=== PATIENT | male | born 1935 | race Caucasian/White ===

== ENCOUNTER 2016-10-22 15:24 | Inpatient (IN) | payer OTHER ==
[~2016-10-22] VITALS: Ht 172.7 cm; Wt 70.8 kg
[2016-10-22 15:25] VITALS: BP_SYST 159
[2016-10-22] MEDS ORDERED: ACETAMINOPHEN 500 MG TABLET PO ONE (18:15)
[2016-10-22] MEDS ORDERED: PROPARACAINE (OPTHANINE 0.5%) 15 ML DROPS OP ONE (18:15)
[2016-10-22] MEDS ORDERED: OMEG300C3 PO (19:37)
[2016-10-22] MEDS ORDERED: ALLO100T PO (19:37)
[2016-10-22] MEDS ORDERED: ASPI-1063 PO (19:38)
[2016-10-22] MEDS ORDERED: CLOP75TA2 PO (19:39)
[2016-10-22] MEDS ORDERED: LEVO75TA7 PO (19:43)
[2016-10-22] MEDS ORDERED: CYCL25CA PO (19:44)
[2016-10-22] MEDS ORDERED: HYDR-1115 PO (19:44)
[2016-10-22 19:46] LABS: BASOPHILS % (AUTO) 0.6 % (0.0-2.0); EOSINOPHILS # (AUTO) 0.4 K/uL (0.0-0.4); EOSINOPHILS % (AUTO) 6.6 % (0.0-4.0); HEMATOCRIT 40.1 % (36-54); HEMOGLOBIN 13.4 g/dL (14.0-18.0); LYMPHOCYTES # (AUTO) 0.8 K/uL (1.0-5.5); LYMPHOCYTES % (AUTO) 14.2 % (20.5-51.5); MEAN CORPUSCULAR HEMOGLOBIN 31 pg (27-31); MEAN CORPUSCULAR HGB CONC 33 % (32-36); MEAN CORPUSCULAR VOLUME 93 fL (79.0-98.0); MONOCYTES # (AUTO) 0.2 K/uL (0.0-1.0); MONOCYTES % (AUTO) 4.2 % (1.7-9.3); NEUTROPHILS # (AUTO) 4.2 K/uL (1.8-7.7); NEUTROPHILS % (AUTO) 74.4 % (40.0-70.0); RED BLOOD CELL COUNT(AUTO) 4.31 MIL/uL (4.2-6.2); RED CELL DISTRIBUTION WIDTH 13.6 % (9.0-15.0); WHITE BLOOD COUNT (AUTO) 5.6 K/uL (4.8-10.8)
[2016-10-22] MEDS ORDERED: ENAL10TA PO (19:46)
[2016-10-22] MEDS ORDERED: METO25TA6 PO (19:46)
[2016-10-22] MEDS ORDERED: COLC0.6T67 PO (19:46)
[2016-10-22] MEDS ORDERED: ERGO500043 PO (19:52)
[2016-10-22 19:53] LABS: ANION GAP 4 (5-15); CALCIUM 8.3 mg/dL (8.4-11.0); CHLORIDE 106 mmol/L (98-107); GLUCOSE 114 mg/dL (70-99); POTASSIUM 3.8 mmol/L (3.5-5.1); SODIUM SERUM 137 mmol/L (136-145); UREA NITROGEN, BLOOD 15 mg/dL (8-21)
[2016-10-22 19:54] LABS: INR 1.1 (0.80-1.20); PROTHROMBIN TIME 11.5 SECS (9.5-12.5)
[2016-10-22 19:58] LABS: ALANINE AMINOTRANSFERASE 11 U/L (12-78); ALBUMIN 3.3 g/dL (3.4-4.8); ASPARTATE AMINOTRANSFERASE 23 U/L (10-37); TOTAL BILIRUBIN 0.6 mg/dL (0.0-1.0); TOTAL PROTEIN, SERUM 6.4 g/dL (6.4-8.3)
[2016-10-22 19:59] LABS: PLATELET COUNT (AUTO) 100 K/uL (130-430)
[2016-10-22 20:15] VITALS: BP_SYST 156
[2016-10-22 20:27] VITALS: BP_SYST 156
[2016-10-22] MEDS ORDERED: cloNIDine HCL 0.1 MG TABLET PO PRN (22:15)
[2016-10-22] MEDS ORDERED: ONDANSETRON HCL 4 MG/2 ML VIAL IVP PRN (22:45)
[2016-10-22] MEDS: MORPHINE 2 MG/ML INJ. SYRINGE IVP PRN (23:35)
[2016-10-23] VITALS (9 sets, daily range): BP systolic 110–145
[2016-10-23] MEDS: MORPHINE 2 MG/ML INJ. SYRINGE IVP PRN ×4 (05:05→17:57)
[2016-10-23 06:33] LABS: MONOCYTES # (AUTO) 0.3 K/uL (0.0-1.0); MONOCYTES % (AUTO) 8.1 % (1.7-9.3); NEUTROPHILS % (AUTO) 55.1 % (40.0-70.0)
[2016-10-23 07:07] LABS: BASOPHILS % (AUTO) 0.3 % (0.0-2.0); EOSINOPHILS # (AUTO) 0.4 K/uL (0.0-0.4); EOSINOPHILS % (AUTO) 10.9 % (0.0-4.0); HEMATOCRIT 35.6 % (36-54); LYMPHOCYTES % (AUTO) 25.6 % (20.5-51.5); MEAN CORPUSCULAR HEMOGLOBIN 31 pg (27-31); MEAN CORPUSCULAR HGB CONC 34 % (32-36); MEAN CORPUSCULAR VOLUME 92 fL (79.0-98.0); NEUTROPHILS # (AUTO) 2.2 K/uL (1.8-7.7); RED BLOOD CELL COUNT(AUTO) 3.86 MIL/uL (4.2-6.2); RED CELL DISTRIBUTION WIDTH 13.2 % (9.0-15.0); WHITE BLOOD COUNT (AUTO) 3.9 K/uL (4.8-10.8)
[2016-10-23 07:23] LABS: ALANINE AMINOTRANSFERASE 11 U/L (12-78); ALBUMIN 2.8 g/dL (3.4-4.8); ANION GAP 5 (5-15); ASPARTATE AMINOTRANSFERASE 22 U/L (10-37); CALCIUM 8.2 mg/dL (8.4-11.0); CHLORIDE 103 mmol/L (98-107); CREATINE KINASE, TOTAL 173 U/L (39-308); CREATININE 0.89 mg/dL (0.55-1.30); GLUCOSE 94 mg/dL (70-99); POTASSIUM 3.7 mmol/L (3.5-5.1); SODIUM SERUM 134 mmol/L (136-145); THYROID STIMULATING HORMONE 2.35 uIu/mL (0.34-4.82); TOTAL BILIRUBIN 0.7 mg/dL (0.0-1.0); TOTAL PROTEIN, SERUM 5.8 g/dL (6.4-8.3); UREA NITROGEN, BLOOD 12 mg/dL (8-21)
[2016-10-23 08:44] LABS: PLATELET COUNT (AUTO) 77 K/uL (130-430)
[2016-10-23] MEDS ORDERED: ASPIRIN 81 MG TABLET(ECOTRIN) PO SCH (09:00)
[2016-10-23] MEDS: METOPROLOL TARTRATE 25 MG TABLET PO SCH ×2 (09:19→21:00)
[2016-10-23] MEDS: hydrALAZINE HCL 25 MG TABLET PO SCH (09:20)
[2016-10-23] MEDS: COLCHICINE 0.6 MG TABLET PO SCH (09:21)
[2016-10-23] MEDS: ENALAPRIL MALEATE 10 MG TABLET (VASOTEC) PO SCH (09:21)
[2016-10-23] MEDS: LEVOTHYROXINE SODIUM 0.075 MG TABLET PO SCH (09:22)
[2016-10-23] MEDS: CLOPIDOGREL BISULFATE 75 MG TABLET PO SCH (09:22)
[2016-10-23] MEDS: ALLOPURINOL 100 MG TABLET (ZYLOPRIM) PO SCH (09:22)
[2016-10-24 00:23] VITALS: BP_SYST 127
[2016-10-24 04:14] VITALS: BP_SYST 120
[2016-10-24] MEDS: MORPHINE 2 MG/ML INJ. SYRINGE IVP PRN ×3 (05:43→17:29)
[2016-10-24 06:34] LABS: CALCIUM 8.2 mg/dL (8.4-11.0); CHLORIDE 106 mmol/L (98-107); CREATININE 0.92 mg/dL (0.55-1.30); GLUCOSE 94 mg/dL (70-99); POTASSIUM 3.7 mmol/L (3.5-5.1); SODIUM SERUM 132 mmol/L (136-145); UREA NITROGEN, BLOOD 14 mg/dL (8-21)
[2016-10-24 06:44] LABS: ANION GAP < 3 (5-15)
[2016-10-24 06:45] LABS: BASOPHILS % (AUTO) 0.3 % (0.0-2.0); EOSINOPHILS # (AUTO) 0.6 K/uL (0.0-0.4); EOSINOPHILS % (AUTO) 12.9 % (0.0-4.0); HEMATOCRIT 37.4 % (36-54); HEMOGLOBIN 12.7 g/dL (14.0-18.0); LYMPHOCYTES # (AUTO) 0.8 K/uL (1.0-5.5); LYMPHOCYTES % (AUTO) 17.3 % (20.5-51.5); MEAN CORPUSCULAR HEMOGLOBIN 32 pg (27-31); MEAN CORPUSCULAR HGB CONC 34 % (32-36); MEAN CORPUSCULAR VOLUME 94 fL (79.0-98.0); MONOCYTES # (AUTO) 0.3 K/uL (0.0-1.0); MONOCYTES % (AUTO) 6.2 % (1.7-9.3); NEUTROPHILS # (AUTO) 2.8 K/uL (1.8-7.7); NEUTROPHILS % (AUTO) 63.3 % (40.0-70.0); RED BLOOD CELL COUNT(AUTO) 3.97 MIL/uL (4.2-6.2); RED CELL DISTRIBUTION WIDTH 13.5 % (9.0-15.0); WHITE BLOOD COUNT (AUTO) 4.5 K/uL (4.8-10.8)
[2016-10-24 08:20] VITALS: BP_SYST 128
[2016-10-24] MEDS: CLOPIDOGREL BISULFATE 75 MG TABLET PO SCH (08:37)
[2016-10-24] MEDS: COLCHICINE 0.6 MG TABLET PO SCH (08:37)
[2016-10-24] MEDS: LEVOTHYROXINE SODIUM 0.075 MG TABLET PO SCH (08:38)
[2016-10-24] MEDS: hydrALAZINE HCL 25 MG TABLET PO SCH (08:38)
[2016-10-24] MEDS: ALLOPURINOL 100 MG TABLET (ZYLOPRIM) PO SCH (08:38)
[2016-10-24] MEDS: ENALAPRIL MALEATE 10 MG TABLET (VASOTEC) PO SCH (08:39)
[2016-10-24] MEDS: METOPROLOL TARTRATE 25 MG TABLET PO SCH ×2 (08:39→20:57)
[2016-10-24 09:30] LABS: PLATELET COUNT (AUTO) 76 K/uL (130-430)
[2016-10-24] MEDS: CYCLOSPORINE MODIFIED 25 MG PO SCH (10:14)
[2016-10-24] MEDS ORDERED: DOCUSATE SODIUM 250 MG CAPSULE PO ONE (11:30)
[2016-10-24] MEDS ORDERED: BISACODYL 5 MG TABLET.DR (DULCOLAX) PO PRN (11:30)
[2016-10-24 12:57] VITALS: BP_SYST 128
[2016-10-24 16:33] VITALS: BP_SYST 123
[2016-10-24 19:25] VITALS: BP_SYST 111
[2016-10-24] MEDS: DOCUSATE SODIUM 250 MG CAPSULE PO SCH (20:56)
[2016-10-25] VITALS (7 sets, daily range): BP systolic 104–138
[2016-10-25] MEDS: DOCUSATE SODIUM 250 MG CAPSULE PO SCH ×2 (08:52→20:42)
[2016-10-25] MEDS: COLCHICINE 0.6 MG TABLET PO SCH (08:54)
[2016-10-25] MEDS: CYCLOSPORINE MODIFIED 25 MG PO SCH (08:54)
[2016-10-25] MEDS: hydrALAZINE HCL 25 MG TABLET PO SCH (08:54)
[2016-10-25] MEDS: ENALAPRIL MALEATE 10 MG TABLET (VASOTEC) PO SCH (08:55)
[2016-10-25] MEDS: ALLOPURINOL 100 MG TABLET (ZYLOPRIM) PO SCH (08:56)
[2016-10-25] MEDS: LEVOTHYROXINE SODIUM 0.075 MG TABLET PO SCH (08:56)
[2016-10-25] MEDS: CLOPIDOGREL BISULFATE 75 MG TABLET PO SCH (08:57)
[2016-10-25] MEDS: METOPROLOL TARTRATE 25 MG TABLET PO SCH ×2 (08:58→20:43)
[2016-10-25] MEDS: MORPHINE 2 MG/ML INJ. SYRINGE IVP PRN ×2 (09:02→20:39)
[2016-10-25 13:13] LABS: BASOPHILS % (AUTO) 0.2 % (0.0-2.0); EOSINOPHILS # (AUTO) 0.4 K/uL (0.0-0.4); EOSINOPHILS % (AUTO) 9.3 % (0.0-4.0); HEMATOCRIT 40.4 % (36-54); HEMOGLOBIN 13.5 g/dL (14.0-18.0); LYMPHOCYTES # (AUTO) 0.9 K/uL (1.0-5.5); LYMPHOCYTES % (AUTO) 19.6 % (20.5-51.5); MEAN CORPUSCULAR HEMOGLOBIN 31 pg (27-31); MEAN CORPUSCULAR HGB CONC 33 % (32-36); MEAN CORPUSCULAR VOLUME 93 fL (79.0-98.0); MONOCYTES # (AUTO) 0.3 K/uL (0.0-1.0); MONOCYTES % (AUTO) 6.5 % (1.7-9.3); NEUTROPHILS # (AUTO) 3.1 K/uL (1.8-7.7); NEUTROPHILS % (AUTO) 64.4 % (40.0-70.0); RED BLOOD CELL COUNT(AUTO) 4.33 MIL/uL (4.2-6.2); RED CELL DISTRIBUTION WIDTH 13.5 % (9.0-15.0); WHITE BLOOD COUNT (AUTO) 4.7 K/uL (4.8-10.8)
[2016-10-25 13:26] LABS: ANION GAP 6 (5-15); CALCIUM 8.5 mg/dL (8.4-11.0); CHLORIDE 101 mmol/L (98-107); CREATININE 1.01 mg/dL (0.55-1.30); GLUCOSE 100 mg/dL (70-99); POTASSIUM 3.4 mmol/L (3.5-5.1); SODIUM SERUM 133 mmol/L (136-145); UREA NITROGEN, BLOOD 18 mg/dL (8-21)
[2016-10-25 13:38] LABS: PLATELET COUNT (AUTO) 83 K/uL (130-430)
[2016-10-25] MEDS ORDERED: POTASSIUM CHLORIDE 20 MEQ TAB.PRT.SR PO ONE (16:30)
[2016-10-26] VITALS: BP_SYST 132
[2016-10-26 04:14] VITALS: BP_SYST 101
[2016-10-26 07:29] LABS: BASOPHILS % (AUTO) 0.5 % (0.0-2.0); EOSINOPHILS # (AUTO) 0.5 K/uL (0.0-0.4); EOSINOPHILS % (AUTO) 11.4 % (0.0-4.0); HEMATOCRIT 37.3 % (36-54); HEMOGLOBIN 12.3 g/dL (14.0-18.0); LYMPHOCYTES # (AUTO) 0.9 K/uL (1.0-5.5); LYMPHOCYTES % (AUTO) 23.2 % (20.5-51.5); MEAN CORPUSCULAR HEMOGLOBIN 31 pg (27-31); MEAN CORPUSCULAR HGB CONC 33 % (32-36); MEAN CORPUSCULAR VOLUME 95 fL (79.0-98.0); MONOCYTES # (AUTO) 0.3 K/uL (0.0-1.0); MONOCYTES % (AUTO) 8.1 % (1.7-9.3); NEUTROPHILS # (AUTO) 2.3 K/uL (1.8-7.7); NEUTROPHILS % (AUTO) 56.8 % (40.0-70.0); PLATELET COUNT (AUTO) 72 K/uL (130-430); RED BLOOD CELL COUNT(AUTO) 3.93 MIL/uL (4.2-6.2); RED CELL DISTRIBUTION WIDTH 13.6 % (9.0-15.0)
[2016-10-26 07:54] LABS: ANION GAP 7 (5-15); CALCIUM 8.4 mg/dL (8.4-11.0); CHLORIDE 104 mmol/L (98-107); CREATININE 0.93 mg/dL (0.55-1.30); GLUCOSE 73 mg/dL (70-99); POTASSIUM 4.3 mmol/L (3.5-5.1); SODIUM SERUM 135 mmol/L (136-145); UREA NITROGEN, BLOOD 21 mg/dL (8-21)
[2016-10-26 08:41] VITALS: BP_SYST 116
[2016-10-26] MEDS: METOPROLOL TARTRATE 25 MG TABLET PO SCH ×2 (09:00→21:22)
[2016-10-26] MEDS: hydrALAZINE HCL 25 MG TABLET PO SCH (09:00)
[2016-10-26] MEDS: COLCHICINE 0.6 MG TABLET PO SCH (09:31)
[2016-10-26] MEDS: ALLOPURINOL 100 MG TABLET (ZYLOPRIM) PO SCH (09:31)
[2016-10-26] MEDS: DOCUSATE SODIUM 250 MG CAPSULE PO SCH ×2 (09:31→21:22)
[2016-10-26] MEDS: LEVOTHYROXINE SODIUM 0.075 MG TABLET PO SCH (09:32)
[2016-10-26] MEDS: CYCLOSPORINE MODIFIED 25 MG PO SCH (09:32)
[2016-10-26] MEDS: ENALAPRIL MALEATE 10 MG TABLET (VASOTEC) PO SCH (09:32)
[2016-10-26 12:32] VITALS: BP_SYST 132
[2016-10-26 16:30] VITALS: BP_SYST 137
[2016-10-26 19:45] VITALS: BP_SYST 131
[2016-10-27 03:35] VITALS: BP_SYST 120
[2016-10-27] MEDS: ALLOPURINOL 100 MG TABLET (ZYLOPRIM) PO SCH (08:10)
[2016-10-27] MEDS: COLCHICINE 0.6 MG TABLET PO SCH (08:10)
[2016-10-27] MEDS: LEVOTHYROXINE SODIUM 0.075 MG TABLET PO SCH (08:10)
[2016-10-27] MEDS: DOCUSATE SODIUM 250 MG CAPSULE PO SCH (08:10)
[2016-10-27] MEDS: ENALAPRIL MALEATE 10 MG TABLET (VASOTEC) PO SCH (08:11)
[2016-10-27] MEDS: hydrALAZINE HCL 25 MG TABLET PO SCH (08:11)
[2016-10-27] MEDS: CYCLOSPORINE MODIFIED 25 MG PO SCH (08:18)
[2016-10-27] MEDS: METOPROLOL TARTRATE 25 MG TABLET PO SCH (08:19)
[2016-10-27 12:21] VITALS: BP_SYST 119
[2016-10-27 14:41] VITALS: BP_SYST 119
[2016-10-27 16:55] VITALS: BP_SYST 111
== END 2016-10-27 16:15 | disposition home health service (06) | DRG 86 ==
LOC: SED 15:24 → STU 19:40 → SMU 10-25 22:34
PROVIDERS: ADMIT Internal Medicine; ATTEND Internal Medicine
PROC: 2W3EX1Z Immobilization of Right Hand using Splint (ICD-10-PCS; principal; 2016-10-22)
PROC: 2W3RX1Z Immobilization of Left Lower Leg using Splint (ICD-10-PCS; 2016-10-22)
DX: S06.350A Traumatic hemorrhage of left cerebrum without loss of consciousness, initial encounter (principal); Z94.0 Kidney transplant status; E44.0 Moderate protein-calorie malnutrition; I12.0 Hypertensive chronic kidney disease with stage 5 chronic kidney disease or end stage renal disease; S82.002A Unspecified fracture of left patella, initial encounter for closed fracture; S52.501A Unspecified fracture of the lower end of right radius, initial encounter for closed fracture; W01.0XXA Fall on same level from slipping, tripping and stumbling without subsequent striking against object, initial encounter; I25.10 Atherosclerotic heart disease of native coronary artery without angina pectoris; M10.9 Gout, unspecified; E78.5 Hyperlipidemia, unspecified; E03.9 Hypothyroidism, unspecified; S05.11XA Contusion of eyeball and orbital tissues, right eye, initial encounter; J32.9 Chronic sinusitis, unspecified; D69.6 Thrombocytopenia, unspecified; R00.1 Bradycardia, unspecified; T45.525A Adverse effect of antithrombotic drugs, initial encounter; Z98.61 Coronary angioplasty status; Z85.828 Personal history of other malignant neoplasm of skin; Z79.82 Long term (current) use of aspirin; Z79.02 Long term (current) use of antithrombotics/antiplatelets; Z88.2 Allergy status to sulfonamides; Z88.8 Allergy status to other drugs, medicaments and biological substances; Z90.49 Acquired absence of other specified parts of digestive tract; Y93.89 Activity, other specified; Y92.89 Other specified places as the place of occurrence of the external cause; Y99.8 Other external cause status; Z68.23 Body mass index [BMI] 23.0-23.9, adult
CPT/HCPCS: 36415; 70450-TC; 70480; 71010; 72125-TC; 73560-TC; 80048; 80053; 82550-TC; 84439; 84443-TC; 85025; 85610-TC; 85730-TC; 93005; 97110-GP; 97116-GP; 97530-GP; 99285; J2270; J7515